=== PATIENT | male | born 1970 | race Caucasian/White ===

== ENCOUNTER 2016-11-21 14:56 | Outpatient (CLI) | payer OTHER ==
--- NOTE | 2016-11-21 15:47 | DIAGNOSTIC IMAGING REPORT ---
PROCEDURE: CT ABDOMEN/PELVIS W/O CONTRAST INDICATION: Right flank pain, R/O STONE,PLEASE LOOK AT APPENDIX TECHNIQUE: Axial CT images were obtained through the abdomen and pelvis without IV contrast. Coronal and sagittal reformations were created. COMPARISON: None. FINDINGS: Mild to moderate right hydronephrosis, moderate right hydroureter with mild ureteric inflammation. There is a 4 mm calculus in the mid to distal right ureter. No other urinary calculi visible. Mild hepatic steatosis and hepatomegaly. Clear lung bases. Normal size heart. No hiatal hernia. The unenhanced appearance of the gallbladder, adrenal glands, pancreas and spleen is normal. The abdominal aorta is normal in its course and caliber. There are no suspicious calcifications, retroperitoneal adenopathy or masses. The stomach, upper bowel loops, and mesentery appears normal. Intact anterior abdominal wall. No free fluid, or inflammation. Mild diverticulosis in the descending colon. The unenhanced appearance of the prostate gland, seminal vesicles, urinary bladder, pelvic vessels, and pelvic bowel loops is normal. Normal appendix. No suspicious calcifications, free fluid, or mass. Intact osseous structures with chronic accentuated kyphosis at T11 with adjacent endplate spurring. IMPRESSION: 1. 4 mm right distal ureteral stone. 2. Normal appendix. 3. Mild descending colon diverticulosis without acute inflammation. 4. Mild hepatic steatosis. 5. Findings called to Criss Brito at to the Urgent Care clinic. All CT scans at this facility use dose modulation, iterative reconstruction, and/or weight-based dosing when appropriate to reduce radiation dose to as low as reasonably achievable.
== END 2016-11-21 23:00 ==
LOC: CT SRH 14:56
DX: R10.9 Unspecified abdominal pain (principal); N20.1 Calculus of ureter; K57.30 Diverticulosis of large intestine without perforation or abscess without bleeding

== ENCOUNTER 2016-11-22 21:06 | Emergency (ER) | payer OTHER ==
--- NOTE | 2016-11-22 23:16 | ED NURSING NOTES ---
Clinical Report - Nurses [facility] [address] [place] [address] 11/22/2016 21:06 Patient: DAGOBERTO BRIDGES TRIAGE Triage time 21:12. Acuity: LEVEL 3. Chief Complaint: (flank pain). 21:23 11/22/16. Alert. No acute distress. (in pain). SEPSIS SCREEN: Sepsis Screen. Negative (no infection suspected/documented). JAIR COMA SCORE: Jair Coma Scale: 15- eyes open spontaneously (4); best verbal response- oriented x 4 (5); best motor response- obeys commands (6). --21:23 Evelia Reese R.N. 21:14 11/22/16. BP: 180/90. HR: 72. RR: 24. O2 saturation: 99%. Temp: 98.1 F. Pain level now: 02/03. --21:23 Evelia Reese R.N. Weight: 147.8 kg stated. Height/Length: 67 inches Per Patient. BMI: 51.1. --21:20 Evelia Reese R.N. Medications Vicodin Oral. --21:18 Evelia Reese R.N. MetFORMIN HCl Oral. --21:18 Evelia Reese R.N. Sertraline HCl Oral. --21:18 Evelia Reese R.N. Lisinopril Oral. --21:19 Evelia Reese R.N. Atorvastatin Calcium Oral. --21:19 Evelia Reese R.N. BuPROPion HCl Oral. --21:20 Evelia Reese R.N. Aspirin Oral. --21:20 Evelia Reese R.N. Allergies Codeine. --21:18 Evelia Reese R.N. History Arrived by private vehicle. Historian: spouse and patient. Accompanied by family. Primary physician (Dr Melgoza in [place]). ( Patient was diagnosed with 4mm kidney stone at urgent care (confirmed at this hospital).). He has had nausea and vomiting. Treatment LABORATORY ENGINEER: (vicodin zofran). PAST MEDICAL HX: Immunizations: up-to-date. SOCIAL HX: Never smoker. No alcohol use or drug use. FALL RISK ASSESSMENT: Fall risk assessment completed. No fall risk identified. NUTRITIONAL RISK ASSESSMENT: The nutritional risk assessment revealed no deficiencies. FUNCTIONAL ASSESSMENT: Functional assessment: no impairments noted. LEARNING NEEDS ASSESSMENT: The learning needs assessment revealed no barriers. SKIN INTEGRITY ASSESSMENT: Skin integrity risk assessment completed. No skin integrity risk identified. --21:23 Evelia Reese R.N. PROBLEMS: Diabetes Mellitus. --21:19 Evelia Reese R.N. ADDITIONAL SURGERIES: Knee Surgery. Vasectomy. --21: Evelia Reese R.N. Interventions ID band on patient. To treatment room. --: Evelia Reese R.N. PHYSICAL ASSESSMENT 21:11/22/16. Ambulatory to room. GENERAL / NEURO / PSYCH: Alert. Oriented X 4. Appears in pain. HEENT: Mucous membranes are pink. RESPIRATORY: Mild respiratory distress (tafchypnea). CVS: Capillary refill less than 2 seconds. GI / : Abdominal tenderness in the right upper quadrant and epigastric area. SKIN: Skin is warm and dry. --21:25 Evelia Reese R.N. NURSING PROGRESS NOTES :11/22/16. Two patient identifiers checked. Call light placed in reach. Side rails up x 1. Bed placed in lowest position. Brakes of bed on. Patient ready for evaluation- chart flagged and notification provided. --21:25 Evelia Reese R.N. 22:11/22/2016 Site #1 started via IV in the right hand with an 22g angiocath; one attempt. Blood drawn: rainbow set. Labeled in the presence of the patient and sent to the lab. Saline lock flushed with 5 mL saline (placed by Karime OJEDA). --22:18 Evelia Reese R.N. 22:11/22/2016 Started bag #1 1000 mL IV Fluids IV NS (Saline); bolus of 1000 mL wide open via site #1. Allergies verified and confirmed 5 rights. IV patency established. IV site checked: no pain, redness, or swelling. IV flushed thoroughly pre- and post-medication administration. Completed per protocol. --22:18 Evelia Reese R.N. 22:22 11/22/2016 Morphine IVP 4 mg given over 2 minute(s) via site #1. Allergies verified, confirmed 5 rights and sedative warning given to the patient and patient's family. IV patency established. IV site checked: no pain, redness, or swelling. IV flushed thoroughly pre- and post-medication administration. IVP given by RN. --22:22 Evelia Reese R.N. 22:25 11/22/2016 Zofran (Ondansetron HCl) IVP 4 mg given over 2 minute(s) via site #1. Allergies verified and confirmed 5 rights. IV patency established. IV site checked: no pain, redness, or swelling. IV flushed thoroughly pre- and post-medication administration. IVP given by RN. --22:25 Evelia Reese R.N. 22:27 11/22/2016 Toradol IVP 30 mg given over 2 minute(s) via site #1. Allergies verified and confirmed 5 rights. IV patency established. IV site checked: no pain, redness, or swelling. IV flushed thoroughly pre- and post-medication administration. IVP given by RN. --22:27 Evelia Reese R.N. 22:52 11/22/16. BP: 155/82. HR: 81. RR: 16. O2 saturation: 100%. Pain level now: 0/10. --22:53 Evelia Reese R.N. Patient and family informed about reason for wait and about plan of care. --22:53 Evelia Reese R.N. 22:52 11/22/2016 IV Fluids IV NS Response: no adverse reaction pain is gone now. Symptoms have improved the patient feels better. 11/22/2016 22:52 BP: 155/82. HR: 81. RR: 16. O2 saturation: 100%. Pain level now: 0/10. --23:09 Evelia Reese R.N. 22:52 11/22/2016 Morphine IVP Response: no adverse reaction pain is gone now. Symptoms have improved the patient feels better. 11/22/2016 22:52 BP: 155/82. HR: 81. RR: 16. O2 saturation: 100%. Pain level now: 0/10. --23:10 Evelia Reese R.N. 22:52 11/22/2016 Zofran IVP Response: no adverse reaction pain is gone now. Symptoms have improved the patient feels better. 11/22/2016 22:52 BP: 155/82. HR: 81. RR: 16. O2 saturation: 100%. Pain level now: 0/10. --23:10 Evelia Reese R.N. 22:52 11/22/2016 Toradol IVP Response: no adverse reaction pain is gone now. Symptoms have improved the patient feels better. --23:11 Evelia Reese R.N. 22:53 11/22/16. --22:53 Evelia Reese R.N. 22:54 11/22/16. Reassessment after fluids administered and medication administered. He reports no complaints, he is calm and he has had no adverse reaction. --22:54 Evelia Reese R.N. 23:23 11/22/2016 Bactrim DS (Sulfamethoxazole-TMP DS) PO Tablets 1 tab given. Allergies verified and confirmed 5 rights. --23:23 Evelia Reese R.N. DISPOSITION / DISCHARGE 23:33 11/22/16. No learning barriers present. Discharge instructions provided and reviewed with the patient and spouse. Reviewed warnings. Reviewed medication(s). Treatments reviewed. Reviewed diet. Patient and spouse verbalized understanding. Written instructions provided in Korean. The patient was discharged home and accompanied by spouse. He left the Emergency Department ambulatory and via private vehicle. Spouse driving. --23:33 Evelia Reese R.N. 22:52 11/22/16. BP: 155/82. HR: 81. RR: 16. O2 saturation: 100%. Pain level now: 0/10. --23:33 Evelia Reese R.N. Departure time: :. --23:33 Evelia Reese R.N. 23:34 11/22/16. Temp: deferred. --23:34 Evelia Reese R.N. 23:11 11/22/2016 IV Fluids IV NS Discontinued: completed upon discharge. Total amount infused: 1000 mL. IV patency established. IV site checked: no pain, redness, or swelling. IV flushed thoroughly. --03:29 Evelia Reese R.N. 23:30 11/22/2016 Site #1 removed upon discharge. Manual pressure and bandaid applied. --03:29 Evelia Reese R.N. Locked/Released at 11/23/2016 3:30 by Evelia Reese R.N.
--- NOTE | 2016-11-22 23:16 | ED CLINICAL REPORT ---
Clinical Report - Physicians/Mid Levels [facility] [address] [place] [address] 11/22/2016 21:06 Patient: DAGOBERTO BRIDGES Time Seen: 2125. Arrived- By private vehicle. Historian- patient. HISTORY OF PRESENT ILLNESS Chief Complaint: FLANK PAIN. This started yesterday and is still present (unchanged). It was abrupt in onset and has been intermittent but is not gone now. It is described as sharp and it is described as located in the right flank and radiating (right lower quadrant). At its maximum, severity described as severe. When seen in the E.D., severity described as severe. The patient has had nausea and vomiting. No loss of appetite or diarrhea. No recent travel. Similar symptoms previously: Once (many years ago). Recent medical care: Not recently seen/assessed. REVIEW OF SYSTEMS No black stools, hematemesis, bloody stools, fever or chest pain. No difficulty breathing or skin rash. positive for hematuria. All systems otherwise negative, except as recorded above. PAST HISTORY See nurses notes. Medications: Aspirin Oral. BuPROPion HCl Oral. Atorvastatin Calcium Oral. Lisinopril Oral. Sertraline HCl Oral. MetFORMIN HCl Oral. Vicodin Oral. Allergies: Codeine. SOCIAL HISTORY Never smoker. No alcohol use or drug use. No recent travel. Is a local resident. ADDITIONAL NOTES The nursing notes have been reviewed. PHYSICAL EXAM Vital Signs: 11/22/2016 21:14 BP: 180/90. HR: 72. RR: 24. O2 saturation: 99%. Temp: 98.1 F. Pain level now: 8/10. Oxygen saturation normal. Appearance: Alert. Oriented X3. Patient in mild distress. Eyes: Pupils equal, round and reactive to light. Eyes normal inspection. CVS: Normal heart rate and rhythm. Heart sounds normal. Pulses normal. Respiratory: No respiratory distress. Breath sounds normal. Chest nontender. Abdomen: Soft and nontender. Bowel sounds normal. Back: Normal inspection. CVA tenderness on the right. (no midline tenderness. No crepitus. No step-offs. No bony abnormalities. No overlying skin changes). Skin: Skin warm and dry. Normal skin color. No rash. Normal skin turgor. Extremities: Extremities exhibit normal ROM. No lower extremity edema. LABS, X-RAYS, AND EKG Laboratory Tests: UA-Culture if indicated: (STEVEN: 11/22/2016 21:26) ( [facility] 11/22/2016 21:40) Final results Test Result Flag Units (Reference) URINE COLOR BROWN URINE APPEARANCE HAZY URINE GLUCOSE NEGATIVE (NEGATIVE) URINE BILIRUBIN 1+ (NEGATIVE) URINE KETONE TRACE (NEGATIVE) URINE SPECIFIC GRAVITY >= 1.030 (1.010-1.030) URINE PH 5.0 (5.0-8.0) URINE PROTEIN 2+ (NEGATIVE) URINE UROBILINOGEN 0.2 EU/dL (0.2-1.0) URINE NITRITE POSITIVE (NEGATIVE) URINE BLOOD 3+ (NEGATIVE) URINE LEUK ESTERASE TRACE (NEGATIVE) URINE RBC 10-25 rbc/hpf (0-1) URINE WBC 3-5 wbc/hpf (0-1) URINE EPITHELIAL CELLS 0-1 EPI/hpf (0-5) URINE BACTERIA MANY (4+) (NONE SEEN) URINE COMMENT CULTURE INDICATED URINE CULTURES ARE SET-UP BASED ON THE FOLLOWING CRITERIA:POSITIVE NITRITEPOSITIVE LEUKOCYTE ESTERASEGREATER THAN 10 WHITE BLOOD CELLSMODERATE (2+) OR GREATER BACTERIA CBC w Diff: (STEVEN: 11/22/2016 22:22) ( [facility] 11/22/2016 22:26) Final results Test Result Flag Units (Reference) WHITE BLOOD COUNT 11.9 H K/uL (4.5-11.5) RED BLOOD COUNT 4.93 M/uL (4.50-5.90) HEMOGLOBIN 13.2 L gm/dL (13.5-17.5) HEMATOCRIT 39.9 L % (41.0-53.0) MEAN CELL VOLUME 81 fL (80-100) MEAN CORPUSCULAR HGB 27 pg (26-34) MEAN CORPUSCULAR HGB CONC 33 g/dL (31-37) RED CELL DISTRIBUTION WIDTH 13.8 % (11.6-14.8) PLATELET COUNT 240 K/uL (150-400) NEUTROPHIL % 85.6 H % (50-75) LYMPH % 8.0 L % (25-40) MONO % 5.8 % (3-14) EOSINOPHIL % 0.5 % (0-4) BASOPHIL % 0.1 % (0-2) CMP: (STEVEN: 11/22/2016 22:22) ( MsgRcvd 11/22/2016 22:38) Final results Test Result Flag Units (Reference) GLUCOSE 123 H mg/dL (70-110) BUN 22 H mg/dL (7-18) CREATININE 1.2 mg/dL (0.6-1.3) Estimated GFR >60 mL/min Estimated GFR- >60 mL/min Note: Persistent reduction over 3 months in eGFR<60 mL/min/1.73 m2 defines CKD. Patients with eGFR values>=60 mL/min/1.73 m2 may also have CKD if evidence ofpersistent proteinuria. Additional information may be foundat www.kidney.org. SODIUM 137 mmol/L (136-145) POTASSIUM 4.0 mmol/L (3.5-5.1) CHLORIDE 102 mmol/L (98-107) CARBON DIOXIDE 26 mmol/L (21-32) CALCIUM 9.3 mg/dL (8.5-10.1) TOTAL PROTEIN 7.9 g/dL (6.4-8.2) ALBUMIN 3.7 g/dL (3.3-5.0) BILIRUBIN, TOTAL 0.3 mg/dL (0.0-1.0) ALKALINE PHOSPHATASE 65 U/L (46-116) AST (SGOT) 22 U/L (15-37) ALT (SGPT) 34 U/L (12-78) . PROGRESS AND PROCEDURES Course of Care: the patient is a pleasant 46 yo male presenting here for R flank pain. patient with recent CT scan. Please see below. PROCEDURE: CT ABDOMEN/PELVIS W/O CONTRAST INDICATION: Right flank pain, R/O STONE,PLEASE LOOK AT APPENDIX TECHNIQUE: Axial CT images were obtained through the abdomen and pelvis without IV contrast. Coronal and sagittal reformations were created. COMPARISON: None. FINDINGS: Mild to moderate right hydronephrosis, moderate right hydroureter with mild ureteric inflammation. There is a 4 mm calculus in the mid to distal right ureter. No other urinary calculi visible. Mild hepatic steatosis and hepatomegaly. Clear lung bases. Normal size heart. No hiatal hernia. The unenhanced appearance of the gallbladder, adrenal glands, pancreas and spleen is normal. The abdominal aorta is normal in its course and caliber. There are no suspicious calcifications, retroperitoneal adenopathy or masses. The stomach, upper bowel loops, and mesentery appears normal. Intact anterior abdominal wall. No free fluid, or inflammation. Mild diverticulosis in the descending colon. The unenhanced appearance of the prostate gland, seminal vesicles, urinary bladder, pelvic vessels, and pelvic bowel loops is normal. Normal appendix. No suspicious calcifications, free fluid, or mass. Intact osseous structures with chronic accentuated kyphosis at T11 with adjacent endplate spurring. IMPRESSION: 1. 4 mm right distal ureteral stone. 2. Normal appendix. 3. Mild descending colon diverticulosis without acute inflammation. 4. Mild hepatic steatosis. do not feel repeat imaging is needed. Patient has persistent pain since the evaluation yesterday. Patient continues to be nontoxic. We'll provide patient with pain medication as well as IV hydration. Patient is agreeable to the treatment and plan. Patient's workup was remarkable for urinary tract infection. Was able a 4 mm right distal ureteral stone. Fairly high chance ofencouraged to follow up with urology. During the patient's course here in the emergency department he noted that the pain had migrated from the right flank into the right groin and had disappeared. Patient is not currently pain free. Patient continues to be nontoxic and in no acute distress. Patient has no tenderness in the right lower quadrant. No concern for acute appendicitis. Patient will be treated with antibiotics for the urinary tract infection. No other concerning findings and patient's workup here in the emergency department. Did not fill patient is being admitted to the hospital require further emergency department workup/evaluation. I discussed with the patient is workup here in the emergency department including his primary imaging as well as diagnosis, home care, follow-up, and return precautions. All questions have been answered. The patient expressed understanding of these instructions and was agreeable to them. Disposition: Discharged. Condition: good. CLINICAL IMPRESSION 11/22/2016 22:52 BP: 155/82. HR: 81. RR: 16. O2 saturation: 100%. Pain level now: 0/10. Hypertensive. Oxygen saturation normal. Right renal colic in the right ureter (acute). Acute urinary tract infection with cystitis and hematuria. Essential hypertension. INSTRUCTIONS Warnings: GENERAL WARNINGS: Return or contact your physician immediately if your condition worsens or changes unexpectedly, if not improving as expected, or if other problems arise. SPECIFICALLY, return if you develop pain, fever, vomiting, the inability to keep fluids down, blood in vomitus, blood in diarrhea, fainting or lightheadedness. Your Current Medications: CONTINUE TAKING THE FOLLOWING MEDICATIONS: Aspirin Oral. Atorvastatin Calcium Oral. BuPROPion HCl Oral. Lisinopril Oral. MetFORMIN HCl Oral. Sertraline HCl Oral. Vicodin Oral. Prescription Medications: Zofran (orally disintegrating tablets) 4 mg: take 1 orally every 8 hours as needed for nausea and vomiting. Dispense ten (10). No refill. Substitution is permissible. Bactrim DS 800 mg / 160 mg: take 1 tablet orally every 12 hours for 10 days. No refill. Substitution is permissible. (disp 20 tabs) Motrin 600 mg tablets: take 1 tablet orally every 6 hours as needed for pain, stiffness or swelling. Dispense thirty (30). No refill. Substitution is permissible. (take with food) Follow-up: Return to the emergency department as needed. Follow up with your doctor in three days. Reason for referral: recheck today's concerns. Screening today revealed the patient's blood pressure to be in the hypertensive range. Blood pressure screening was not performed during this visit because the patient has an active diagnosis of hypertension. The patient should follow up with a primary care provider for blood pressure management. Understanding of the discharge instructions verbalized by patient. Follow-up with: Turner Whittaker MD, Urology, , [address], [place], [place], [address] Follow up. Reason for referral: contact if you do not have a urologist for an appointment in 2 - 5 days. Summary of care provided to patient via paper. (Electronically signed by Macho Wolfe Dr. 11/27/2016 9:34)
--- NOTE | 2016-11-22 23:17 | ED ORDER SUMMARY ---
..... Patient: DAGOBERTO BRIDGES OrderSheet [facility] VisitID: [id number] [place] [address] 46y, M Registration Date/Time: 11/22/2016 ORDER SHEET Weight: 147.8 kg (stated) Allergies: Codeine GENERAL ORDERS: UA-Culture if indicated Urgent (21:11/22/2016 Carolin Myers) (Ack 21:30 Pablito) (21:40 ALawrence ER Tech1) CBC w Diff Urgent (:11/22/2016 Carolin Myers) (Ack 21:43 Pablito) (Collected 22:19 RMarsden R.N.) (22:33 RCollier R.N.) CMP Urgent (:11/22/2016 Carolin Myers) (Ack 21:43 Pablito) (Collected 22:19 RMarsden R.N.) (22:33 RCollier R.N.) MEDICATION ORDERS: Bactrim DS PO (Tablet 800-160 mg) 1 tab (NOW) (23:18 11/22/2016 Carolin Myers) (Ack 23:18 RMarsden R.N.) (23:23 RMarsden R.N.) IV FLUIDS: IV NS : initial bolus 1000 mL (1000 mL/hr), then none - for X1 (NOW) (21:41 11/22/2016 Carolin Myers) (Ack 21:47 RMarsden R.N.) (22:18 RMarsden R.N.) Morphine IV 4 mg (HIGH ALERT MEDICATION, NOW) (21:11/22/2016 Carolin Myers) (Ack 21:47 RMarsden R.N.) (22:22 RMarsden R.N.) Toradol IV 30 mg (NOW) (:11/22/2016 Carolin Myers) (Ack 21:47 RMarsden R.N.) (22:27 RMarsden R.N.) Zofran IV 4 mg (NOW) (21:11/22/2016 Carolin Myers) (Ack 21:47 RMarsden R.N.) (22:25 RMarsden R.N.) ORDER SHEET NOTES: [Electronically signed by Evelia Reese R.N. (03:11/23/2016)] [Electronically signed by Macho Wolfe Dr. (09:34 11/27/2016)] [Electronically locked/signed by Evelia Reese R.N. (:11/23/2016)]
--- NOTE | 2016-11-22 23:17 | ED ORDER SUMMARY ---
..... Patient: DAGOBERTO BRIDGES OrderSheet [facility] VisitID: [id number] [place] [address] 46y, M Registration Date/Time: 11/22/2016 ORDER SHEET Weight: 147.8 kg (stated) Allergies: Codeine GENERAL ORDERS: UA-Culture if indicated Urgent (21:11/22/2016 Carolin Myers) (Ack 21:30 Pablito) (21:40 ALawrence ER Tech1) CBC w Diff Urgent (:11/22/2016 Carolin Myers) (Ack 21:43 Pablito) (Collected 22:19 RMarsden R.N.) (22:33 RCollier R.N.) CMP Urgent (:11/22/2016 Carolin Myers) (Ack 21:43 Pablito) (Collected 22:19 RMarsden R.N.) (22:33 RCollier R.N.) MEDICATION ORDERS: Bactrim DS PO (Tablet 800-160 mg) 1 tab (NOW) (23:18 11/22/2016 Carolin Myers) (Ack 23:18 RMarsden R.N.) (23:23 RMarsden R.N.) IV FLUIDS: IV NS : initial bolus 1000 mL (1000 mL/hr), then none - for X1 (NOW) (21:41 11/22/2016 Carolin Myers) (Ack 21:47 RMarsden R.N.) (22:18 RMarsden R.N.) Morphine IV 4 mg (HIGH ALERT MEDICATION, NOW) (21:11/22/2016 Carolin Myers) (Ack 21:47 RMarsden R.N.) (22:22 RMarsden R.N.) Toradol IV 30 mg (NOW) (:11/22/2016 Carolin Myers) (Ack 21:47 RMarsden R.N.) (22:27 RMarsden R.N.) Zofran IV 4 mg (NOW) (21:11/22/2016 Carolin Myers) (Ack 21:47 RMarsden R.N.) (22:25 RMarsden R.N.) ORDER SHEET NOTES: [Electronically signed by Evelia Reese R.N. (03:11/23/2016)] [Electronically signed by Macho Wolfe Dr. (09:34 11/27/2016)] [Electronically locked/signed by Evelia Reese R.N. (:11/23/2016)]
--- NOTE | 2016-11-27 09:35 | ED DISCHARGE INSTRUCTIONS ---
Patient: DAGOBERTO BRIDGES General Instructions [facility] VisitID: [id number] [place] [address] 46y, M Registration Date/Time: 11/22/2016 11/22/2016 22:52 BP: 155/82. HR: 81. RR: 16. O2 saturation: 100%. Pain level now: 0/10. Hypertensive. Oxygen saturation normal. Right renal colic in the right ureter (acute). Acute urinary tract infection with cystitis and hematuria. Essential hypertension. INSTRUCTIONS Warnings: GENERAL WARNINGS: Return or contact your physician immediately if your condition worsens or changes unexpectedly, if not improving as expected, or if other problems arise. SPECIFICALLY, return if you develop pain, fever, vomiting, the inability to keep fluids down, blood in vomitus, blood in diarrhea, fainting or lightheadedness. Your Current Medications: CONTINUE TAKING THE FOLLOWING MEDICATIONS: Aspirin Oral. Atorvastatin Calcium Oral. BuPROPion HCl Oral. Lisinopril Oral. MetFORMIN HCl Oral. Sertraline HCl Oral. Vicodin Oral. Prescription Medications: Zofran (orally disintegrating tablets) 4 mg: take 1 orally every 8 hours as needed for nausea and vomiting. Dispense ten (10). No refill. Substitution is permissible. Bactrim DS 800 mg / 160 mg: take 1 tablet orally every 12 hours for 10 days. No refill. Substitution is permissible. (disp 20 tabs) Motrin 600 mg tablets: take 1 tablet orally every 6 hours as needed for pain, stiffness or swelling. Dispense thirty (30). No refill. Substitution is permissible. (take with food) Follow-up: Return to the emergency department as needed. Follow up with your doctor in three days. Reason for referral: recheck today's concerns. Screening today revealed the patient's blood pressure to be in the hypertensive range. Blood pressure screening was not performed during this visit because the patient has an active diagnosis of hypertension. The patient should follow up with a primary care provider for blood pressure management. Understanding of the discharge instructions verbalized by patient. Follow-up with: Turner Whittaker MD, Urology, , [id number], [place], [id number] Follow up. Reason for referral: contact if you do not have a urologist for an appointment in 2 - 5 days. Summary of care provided to patient via paper. ADDITIONAL INFORMATION Kidney Stone (W/ Colic) The sharp cramping pain and nausea/vomiting that you have is due to a small stone which has formed in the kidney and is now passing down a narrow tube (ureter) on its way to your bladder. Once it reaches your bladder, the pain will stop. The stone may pass in your urine stream in one piece. [The size may be 1/16" to 1/4" (1-6mm)]. Or, the stone may also break up into dada fragments which you may not even notice. Once you have had a kidney stone, you are at risk for developing another one in the future. Home Care: Drink plenty of fluids (at least 8 to 10 glasses of water a day). Most stones will pass on their own, but may take from a few hours to a few days. Sometimes the stone is too large to pass by itself and special methods will have to be used to remove the stone. Each time you urinate, do so in a jar. Pour the urine from the jar through the strainer and into the toilet. Continue doing this until 24 hours after your pain stops. By then, if there was a kidney stone, it should pass from your bladder. Some stones dissolve into sand-like particles and pass right through the strainer. In that case, you wont ever see a stone. Save any stone that you find in the strainer and bring it to your doctor for analysis. It may be possible to prevent certain types of stones from forming. Therefore, it is important to know what kind of stone you have. Try to stay as active as possible since this will help the stone pass. Do not stay in bed unless your pain prevents you from getting up. You may notice a red, pink or brown color to your urine. This is normal while passing a kidney stone. Follow Up with your doctor or return to this facility if the pain lasts more than 48 hours. Get Prompt Medical Attention if any of the following occur: Pain that is not controlled by the medicine given Repeated vomiting or unable to keep down fluids Weakness, dizziness or fainting Fever of 100.4F (38C) or higher, or as directed by your healthcare provider Passage of solid red or brown urine (can't see through it) or urine with lots of blood clots Unable to pass urine for 8 hours and increasing bladder pressure Bladder Infection,Male (Adult) A bladder infection ("cystitis" or "UTI") usually causes a constant urge to urinate, and a burning when passing urine. Urine may be cloudy, smelly or dark. There may be also be pain in the lower abdomen. Cystitis in males is not common. It may be caused by a partial blockage in the urinary system that keeps the bladder from emptying completely. This is most often related to an enlarged prostate gland. Home Care: Drink lots of fluids (at least 6-8 glasses a day). This will flush the bacteria out of your bladder. Avoid sexual intercourse until your symptoms are gone. Avoid caffeine, alcohol, and spicy foods. They could irritate the bladder. A bladder infection is treated with antibiotics. You may also be given Pyridium (generic - phenazopyridine) to reduce burning with urination. This will cause urine to become a bright orange color, which can stain clothing. Follow Up with your doctor or this facility if ALL symptoms have not cleared within five days. It is important to keep your follow up appointment to discuss with your doctor the need for further tests of the urinary tract. Get Prompt Medical Attention if any of the following occur: Fever of 100.4F (38C) or higher, or as directed by your healthcare provider No improvement by the third day of treatment Increasing back or abdominal pain Repeated vomiting; unable to keep medicine down Weakness, dizziness or fainting High Blood Pressure --Established High Blood Pressure (Hypertension) is a chronic disease. The cause is unknown in most cases. It can usually be controlled with lifestyle changes and/or medicines. Symptoms of high blood pressure may include headache, dizziness, visual changes, chest pain and shortness of breath. Sometimes it causes no symptoms at all. However, even if there are no symptoms, untreated high blood pressure increases the risk of heart attack, also known as acute myocardial infarction, or AMI, and stroke. It is a serious health risk and should not be ignored. A normal blood pressure is 120/80 or less. The first (top) number is the "systolic" pressure. The second (bottom) number is the "diastolic" pressure. Hypertension exists when either the top number is 140 or higher, OR the bottom number is 90 or higher on repeated measurements. Home Care: All patients with high blood pressure should do the following to lower their pressure. If you are on medicines, then these methods may reduce or eliminate your need for medicines in the future. Begin a weight loss program if you are overweight. Reduce your salt intake. Avoid high salt foods (olives, pickles, smoked meats, salted potato chips, etc.). Do not add salt to your food at the table. Use only small amounts of salt when cooking. Begin an exercise program. Discuss with your doctor what type of exercise program would be best for you. It doesn't have to be difficult. Even brisk walking for 20 minutes three times a week is a good form of exercise. Avoid medicines which contain heart stimulants. This includes many cold and sinus decongestant pills and sprays as well as diet pills. Check the warnings about hypertension on the label. Stimulants such as amphetamine or cocaine could be lethal for someone with hypertension. Never take these. Limit your caffeine intake or switch to caffeine-free products. Stop smoking. If you are a long-time smoker, this can be hard. Enroll in a stop-smoking program to improve your chance of success. Learning how to handle stress better is an important part of any program to lower blood pressure. Learn about relaxation methods such as meditation, yoga or biofeedback. If medicines were prescribed, take them exactly as directed. Missing doses may cause your blood pressure get out of control. Consider buying an automatic blood pressure machine (available at most pharmacies). Use this to monitor your blood pressure at home and report the results to your doctor. Follow Up: Regular visits to your own physician for blood pressure checks and medicine adjustment is an important part of your care. Make a follow-up appointment as directed by our staff. Get Prompt Medical Attention if any of the following occur: Chest pain or shortness of breath Severe headache Throbbing or rushing sound in the ears Nosebleed Sudden severe abdominal pain Extreme drowsiness, confusion or fainting Dizziness or vertigo (dizziness with spinning sensation) Weakness of an arm or leg or one side of the face Difficulty with speech or vision Ondansetron Oral disintegrating tablet What is this medicine? ONDANSETRON (on NICOL se margarita) is used to treat nausea and vomiting caused by chemotherapy. It is also used to prevent or treat nausea and vomiting after surgery. How should I use this medicine? These tablets are made to dissolve in the mouth. Do not try to push the tablet through the foil backing. With dry hands, peel away the foil backing and gently remove the tablet. Place the tablet in the mouth and allow it to dissolve, then swallow. While you may take these tablets with water, it is not necessary to do so. Talk to your flat knitter regarding the use of this medicine in children. Special care may be needed. What side effects may I notice from receiving this medicine? Side effects that you should report to your doctor or health home care music therapist as soon as possible: allergic reactions like skin rash, itching or hives, swelling of the face, lips, or tongue breathing problems dizziness fast or irregular heartbeat feeling faint or lightheaded, falls fever and chills swelling of the hands and feet tightness in the chest Side effects that usually do not require medical attention (report to your doctor or health home care music therapist if they continue or are bothersome): constipation or diarrhea headache What may interact with this medicine? Do not take this medicine with any of the following medications: -apomorphine -cisapride -dofetilide -dronedarone -pimozide -thioridazine -ziprasidone This medicine may also interact with the following medications: -carbamazepine -phenytoin -rifampicin -tramadol -other medicines that prolong the QT interval (cause an abnormal heart rhythm) What if I miss a dose? If you miss a dose, take it as soon as you can. If it is almost time for your next dose, take only that dose. Do not take double or extra doses. Where should I keep my medicine? Keep out of the reach of children. Store between 2 and 30 degrees C (36 and 86 degrees F). Throw away any unused medicine after the expiration date. What should I tell my health care provider before I take this medicine? They need to know if you have any of these conditions: heart disease history of irregular heartbeat liver disease low levels of magnesium or potassium in the blood an unusual or allergic reaction to ondansetron, granisetron, other medicines, foods, dyes, or preservatives or trying to get breast-feeding What should I watch for while using this medicine? Check with your doctor or health home care music therapist as soon as you can if you have any sign of an allergic reaction. Sulfamethoxazole, Trimethoprim Oral tablet What is this medicine? SULFAMETHOXAZOLE; TRIMETHOPRIM or SMX-TMP (suhl fuh meth OK radha zohl; trye METH oh prim) is a combination of a sulfonamide antibiotic and a second antibiotic, trimethoprim. It is used to treat or prevent certain kinds of bacterial infections. It will not work for colds, flu, or other viral infections. How should I use this medicine? Take this medicine by mouth with a full glass of water. Follow the directions on the prescription label. Take your medicine at regular intervals. Do not take it more often than directed. Do not skip doses or stop your medicine early. Talk to your flat knitter regarding the use of this medicine in children. Special care may be needed. This medicine has been used in children as young as 2 months of age. What side effects may I notice from receiving this medicine? Side effects that you should report to your doctor or health home care music therapist as soon as possible: allergic reactions like skin rash or hives, swelling of the face, lips, or tongue breathing problems fever or chills, sore throat irregular heartbeat, chest pain joint or muscle pain pain or difficulty passing urine red pinpoint spots on skin redness, blistering, peeling or loosening of the skin, including inside the mouth unusual bleeding or bruising unusually weak or tired yellowing of the eyes or skin Side effects that usually do not require medical attention (report to your doctor or health home care music therapist if they continue or are bothersome): diarrhea dizziness headache loss of appetite nausea, vomiting nervousness What may interact with this medicine? Do not take this medicine with any of the following medications: aminobenzoate potassium dofetilide metronidazole This medicine may also interact with the following medications: TOBIAS inhibitors like benazepril, enalapril, lisinopril, and ramipril cyclosporine digoxin diuretics indomethacin medicines for diabetes methenamine methotrexate phenytoin potassium supplements pyrimethamine sulfinpyrazone tricyclic antidepressants warfarin What if I miss a dose? If you miss a dose, take it as soon as you can. If it is almost time for your next dose, take only that dose. Do not take double or extra doses. Where should I keep my medicine? Keep out of the reach of children. Store at room temperature between 20 to 25 degrees C (68 to 77 degrees F). Protect from light. Throw away any unused medicine after the expiration date. What should I tell my health care provider before I take this medicine? They need to know if you have any of these conditions: anemia asthma being treated with anticonvulsants if you frequently drink alcohol containing drinks kidney disease liver disease low level of folic acid or kzpyotn-2-nplytjouc dehydrogenase poor nutrition or malabsorption porphyria severe allergies thyroid disorder an unusual or allergic reaction to sulfamethoxazole, trimethoprim, sulfa drugs, other medicines, foods, dyes, or preservatives or trying to get breast-feeding What should I watch for while using this medicine? Tell your doctor or health home care music therapist if your symptoms do not improve. Drink several glasses of water a day to reduce the risk of kidney problems. Do not treat diarrhea with over the counter products. Contact your doctor if you have diarrhea that lasts more than 2 days or if it is severe and watery. This medicine can make you more sensitive to the sun. Keep out of the sun. If you cannot avoid being in the sun, wear protective clothing and use a sunscreen. Do not use sun lamps or tanning beds/booths. Ibuprofen Oral tablet What is this medicine? IBUPROFEN (eye BYOO proe fen) is a non-steroidal anti-inflammatory drug (NSAID). It is used for dental pain, fever, headaches or migraines, osteoarthritis, rheumatoid arthritis, or painful monthly periods. It can also relieve minor aches and pains caused by a cold, flu, or sore throat. How should I use this medicine? Take this medicine by mouth with a glass of water. Follow the directions on the prescription label. Take this medicine with food if your stomach gets upset. Try to not lie down for at least 10 minutes after you take the medicine. Take your medicine at regular intervals. Do not take your medicine more often than directed. A special MedGuide will be given to you by the pharmacist with each prescription and refill. Be sure to read this information carefully each time. Talk to your flat knitter regarding the use of this medicine in children. Special care may be needed. What side effects may I notice from receiving this medicine? Side effects that you should report to your doctor or health home care music therapist as soon as possible: allergic reactions like skin rash, itching or hives, swelling of the face, lips, or tongue black or bloody stools, blood in the urine or in vomit breathing problems changes in vision chest pain general ill feeling or flu-like symptoms nausea or vomiting redness, blistering, peeling or loosening of the skin, including inside the mouth slurred speech or weakness on one side of the body stomach pain unexplained weight gain or swelling unusually weak or tired yellowing of eyes or skin Side effects that usually do not require medical attention (report to your doctor or health home care music therapist if they continue or are bothersome): constipation or diarrhea dizziness gas or heartburn stomach upset What may interact with this medicine? Do not take this medicine with any of the following medications: cidofovir ketorolac methotrexate pemetrexed This medicine may also interact with the following medications: alcohol aspirin diuretics lithium other drugs for inflammation like prednisone warfarin What if I miss a dose? If you miss a dose, take it as soon as you can. If it is almost time for your next dose, take only that dose. Do not take double or extra doses. Where should I keep my medicine? Keep out of the reach of children. Store at room temperature between 15 and 30 degrees C (59 and 86 degrees F). Keep container tightly closed. Throw away any unused medicine after the expiration date. What should I tell my health care provider before I take this medicine? They need to know if you have any of these conditions: asthma cigarette smoker drink more than 3 alcohol containing drinks a day heart disease or circulation problems such as heart failure or leg edema (fluid retention) high blood pressure kidney disease liver disease stomach bleeding or ulcers an unusual or allergic reaction to ibuprofen, aspirin, other NSAIDS, other medicines, foods, dyes, or preservatives or trying to get breast-feeding What should I watch for while using this medicine? Tell your doctor or healthcare professional if your symptoms do not start to get better or if they get worse. This medicine does not prevent heart attack or stroke. In fact, this medicine may increase the chance of a heart attack or stroke. The chance may increase with longer use of this medicine and in people who have heart disease. If you take aspirin to prevent heart attack or stroke, talk with your doctor or health home care music therapist. Do not take other medicines that contain aspirin, ibuprofen, or naproxen with this medicine. Side effects such as stomach upset, nausea, or ulcers may be more likely to occur. Many medicines available without a prescription should not be taken with this medicine. This medicine can cause ulcers and bleeding in the stomach and intestines at any time during treatment. Ulcers and bleeding can happen without warning symptoms and can cause . To reduce your risk, do not smoke cigarettes or drink alcohol while you are taking this medicine. You may get drowsy or dizzy. Do not drive, use machinery, or do anything that needs mental alertness until you know how this medicine affects you. Do not stand or sit up quickly, especially if you are an older patient. This reduces the risk of dizzy or fainting spells. This medicine can cause you to bleed more easily. Try to avoid damage to your teeth and gums when you brush or floss your teeth. You have been given the following additional information: Kidney Stone W/ Colic Bladder Infection, Male (Adult) Hypertension, Established Ondansetron Oral disintegrating tablet Sulfamethoxazole, Trimethoprim Oral tablet Ibuprofen Oral tablet (Electronically signed by Macho Wolfe Dr. 11/27/2016 9:34)
--- NOTE | 2016-11-27 09:35 | ED MAR SUMMARY ---
..... Medication Administration Record [facility] [address] [place] [address] Patient: DAGOBERTO BRIDGES Visit ID: [id number] 46y, M Weight: 147.8 kg Height/Length: 67 in BMI: 51.1 ALLERGIES: Codeine Start 22:18 11/22/2016 Evelia Reese R.N., Stop 23:11 11/22/2016 Evelia Reese R.N. Medication Administered: IV NS (SALINE), Dose: IV Fluids, Bolus: 1000 mL wide open, Dispensed: 1000 mL bag, Site: #1 right hand. Medication Ordered: IV NS : initial bolus 1000 mL (1000 mL/hr), then none - for X1 (NOW). Given 22:11/22/2016 Evelia Reese R.N. Medication Administered: MORPHINE [IVP], Dose: 4 mg IVP over 2 minute(s), Site: #1 right hand. Medication Ordered: Morphine IV 4 mg (HIGH ALERT MEDICATION, NOW). Given 22:11/22/2016 Evelia Reese R.N. Medication Administered: ZOFRAN [IVP] (ONDANSETRON HCL), Dose: 4 mg IVP over 2 minute(s), Site: #1 right hand. Medication Ordered: Zofran IV 4 mg (NOW). Given 22:11/22/2016 Evelia Reese R.N. Medication Administered: TORADOL [IVP], Dose: 30 mg IVP over 2 minute(s), Site: #1 right hand. Medication Ordered: Toradol IV 30 mg (NOW). Given 23:11/22/2016 Evelia Reese R.N. Medication Administered: BACTRIM DS [PO] (SULFAMETHOXAZOLE-TMP DS), Dose: 1 tab Tablets PO. Medication Ordered: Bactrim DS PO (Tablet 800-160 mg) 1 tab (NOW).
--- NOTE | 2016-11-27 09:35 | ED MED RECONCILIATION SUMMARY ---
Patient: DAGOBERTO BRIDGES Medication Reconciliation Report [facility] VisitID: [id number] [address] [place] [address] 46y, M Registration Date/Time: 11/22/2016 Weight: 147.8 kg Height/Length: 67 in. BMI: 51.1 ALLERGIES: Codeine The patient's Home Medications are listed below: CONTINUE TAKING THE FOLLOWING MEDICATIONS: Aspirin Oral Atorvastatin Calcium Oral BuPROPion HCl Oral Lisinopril Oral MetFORMIN HCl Oral Sertraline HCl Oral Vicodin Oral The source(s) of the original Home Medication information: Not obtained. The following Medications were given to the patient in the Emergency Department: IV NS IV Fluids bolus 1000 mL wide open, administered: 11/22/2016 10:18:00 PM Morphine [IVP] IVP 4 mg, administered: 11/22/2016 10:22:00 PM Zofran [IVP] IVP 4 mg, administered: 11/22/2016 10:25:00 PM Toradol [IVP] IVP 30 mg, administered: 11/22/2016 10:27:00 PM Bactrim DS [PO] PO 1 tab, administered: 11/22/2016 11:23:00 PM The following Medications were prescribed to the patient: Zofran (orally disintegrating tablets) 4 mg: take 1 orally every 8 hours as needed for nausea and vomiting. Dispense ten (10). No refill. Substitution is permissible. -- Macho Wolfe Dr. Bactrim DS 800 mg / 160 mg: take 1 tablet orally every 12 hours for 10 days. No refill. Substitution is permissible.(disp 20 tabs) -- Macho Wolfe Dr. Motrin 600 mg tablets: take 1 tablet orally every 6 hours as needed for pain, stiffness or swelling. Dispense thirty (30). No refill. Substitution is permissible.(take with food) -- Macho Wolfe Dr.
--- NOTE | 2016-11-27 09:35 | ED MAR SUMMARY ---
..... Medication Administration Record [facility] [address] [place] [address] Patient: DAGOBERTO BRIDGES Visit ID: [id number] 46y, M Weight: 147.8 kg Height/Length: 67 in BMI: 51.1 ALLERGIES: Codeine Start 22:18 11/22/2016 Evelia Reese R.N., Stop 23:11 11/22/2016 Evelia Reese R.N. Medication Administered: IV NS (SALINE), Dose: IV Fluids, Bolus: 1000 mL wide open, Dispensed: 1000 mL bag, Site: #1 right hand. Medication Ordered: IV NS : initial bolus 1000 mL (1000 mL/hr), then none - for X1 (NOW). Given 22:11/22/2016 Evelia Reese R.N. Medication Administered: MORPHINE [IVP], Dose: 4 mg IVP over 2 minute(s), Site: #1 right hand. Medication Ordered: Morphine IV 4 mg (HIGH ALERT MEDICATION, NOW). Given 22:11/22/2016 Evelia Reese R.N. Medication Administered: ZOFRAN [IVP] (ONDANSETRON HCL), Dose: 4 mg IVP over 2 minute(s), Site: #1 right hand. Medication Ordered: Zofran IV 4 mg (NOW). Given 22:11/22/2016 Evelia Reese R.N. Medication Administered: TORADOL [IVP], Dose: 30 mg IVP over 2 minute(s), Site: #1 right hand. Medication Ordered: Toradol IV 30 mg (NOW). Given 23:11/22/2016 Evelia Reese R.N. Medication Administered: BACTRIM DS [PO] (SULFAMETHOXAZOLE-TMP DS), Dose: 1 tab Tablets PO. Medication Ordered: Bactrim DS PO (Tablet 800-160 mg) 1 tab (NOW).
--- NOTE | 2016-11-27 09:35 | ED MED RECONCILIATION SUMMARY ---
Patient: DAGOBERTO BRIGDES Medication Reconciliation Report [facility] VisitID: [id number] [address] [place] [address] 46y, M Registration Date/Time: 11/22/2016 Weight: 147.8 kg Height/Length: 67 in. BMI: 51.1 ALLERGIES: Codeine The patient's Home Medications are listed below: CONTINUE TAKING THE FOLLOWING MEDICATIONS: Aspirin Oral Atorvastatin Calcium Oral BuPROPion HCl Oral Lisinopril Oral MetFORMIN HCl Oral Sertraline HCl Oral Vicodin Oral The source(s) of the original Home Medication information: Not obtained. The following Medications were given to the patient in the Emergency Department: IV NS IV Fluids bolus 1000 mL wide open, administered: 11/22/2016 10:18:00 PM Morphine [IVP] IVP 4 mg, administered: 11/22/2016 10:22:00 PM Zofran [IVP] IVP 4 mg, administered: 11/22/2016 10:25:00 PM Toradol [IVP] IVP 30 mg, administered: 11/22/2016 10:27:00 PM Bactrim DS [PO] PO 1 tab, administered: 11/22/2016 11:23:00 PM The following Medications were prescribed to the patient: Zofran (orally disintegrating tablets) 4 mg: take 1 orally every 8 hours as needed for nausea and vomiting. Dispense ten (10). No refill. Substitution is permissible. -- Mach[address] Dr[address] Bactrim DS 800 mg / 160 mg: take 1 tablet orally every 12 hours for 10 days. No refill. Substitution is permissible.(disp 20 tabs) -- Macho [address]fe Dr. Motrin 600 mg tablets: take 1 tablet orally every 6 hours as needed for pain, stiffness or swelling. Dispense thirty (30). No refill. Substitution is permissible.(take with food) -- Macho [address] Dr[address]
== END 2016-11-22 23:33 | disposition home or self-care (01) ==
LOC: ED SRH 21:06
DX: N23 Unspecified renal colic (principal); N30.91 Cystitis, unspecified with hematuria; I10 Essential (primary) hypertension; E11.9 Type 2 diabetes mellitus without complications; Z79.899 Other long term (current) drug therapy; Z79.84 Long term (current) use of oral hypoglycemic drugs; Z88.5 Allergy status to narcotic agent
CPT/HCPCS: 90004; 90100; 90469; 95059